=== PATIENT | female | born 1960 | race Caucasian/White ===

== ENCOUNTER 2018-01-06 12:57 | Day surgery (SDC) | payer BC ==
[2018-01-06] MEDS ORDERED: Dexamethasone 20 MG/5 ML VIAL ONE (15:03)
[2018-01-06] MEDS ORDERED: Lidocaine 1% PF 5 ML VIAL ONE (15:03)
[2018-01-06] MEDS ORDERED: Ondansetron HCl/PF 4 MG/2 ML Vial ONE (15:03)
[2018-01-06] MEDS ORDERED: PROPOFOL 200 MG/20 ML VIAL ONE (15:03)
[2018-01-06] MEDS ORDERED: ePHEDrine/0.9% NaCl/PF SYRINGE 50 mg/10 ml ONE (15:03)
[2018-01-06] MEDS ORDERED: Midazolam HCl 2 mg/2 ml Vial ONE (16:07)
[2018-01-06] MEDS ORDERED: Bupivacaine HCl 0.5%/Epinephrine 1:200,000/PF 30 ml Vial IJ SCH (16:30)
[2018-01-06] MEDS ORDERED: Bacitracin Zinc Ointment 30 gm TUBE ONE (18:08)
[2018-01-06] MEDS ORDERED: Bupivacaine PF 0.5% 30 ML VIAL ONE (18:08)
[2018-01-06] MEDS ORDERED: Sodium Chloride 0.9% 0 ML ONE (18:08)
[2018-01-06] MEDS ORDERED: Fentanyl 100 MCG/2 ML VIAL ONE (18:53)
[2018-01-06] MEDS ORDERED: Promethazine HCl 25 MG/ML VIAL ONE (21:18)
[2018-01-06] MEDS ORDERED: Ketorolac Tromethamine 30 MG/ML VIAL ONE (21:37)
--- NOTE | 2018-01-06 22:47 | RAD ---
INTRAOPERATIVE FLUOROSCOPY 01/06/18 HISTORY: ORIF left fifth digit. COMPARISON: None. EXPOSURE: 48.8 seconds, 0.90 mGy. FINDINGS: Fluoroscopic images demonstrate placement of three metallic pins through the distal phalanx of the th umb. IMPRESSION: Fluoroscopy as above. POS: RAD[facility]
--- NOTE | 2018-01-07 14:19 | OP ---
DATE OF PROCEDURE: 01/06/2018 PREOPERATIVE DIAGNOSES: Right type 4 Kimberly and Uniform Cap Operator flexor digitorum profundus avulsion of the ten don with findings of distal phalanx fracture was three-part intra-articular. PROCEDURES PERFORMED: 1. Open reduction and internal fixation of distal phalanx fracture. 2. [place] common flexor digitorum profundus from the site of retraction to the A2 pully in. 3. Open reduction and internal fixation with reconstruction of the flexor tendon back to bone, zone 1. COMPLICATIONS: None. FINDINGS: Patient had marked amount of hematoma with had return of adequate one second capilla ry refill once the wound was closed and the tourniquet was deflated. INDICATIONS: Patient is now almost 10 days after injury described above. Uncertain whether the tend on was in the palm or not, so in order to get to perform the procedure within 2-week window, procedur e had to be scheduled today as a semi-urgent case. Anesthesia was block, augmented by general LMA eladio hnique. DESCRIPTION OF PROCEDURE: After successful general endotracheal anesthesia, limb was prepped and catrina ped. C-arm brought into the field. We confirmed where the bone block was and also the fracture. We inflated the tourniquet, examined them, opened the distal phalanx with a curvilinear incision stayin g off the center of the palm itself, protected the neurovascular bundle and carried through skin and subcutaneous tissue, we saw that the patient had nearly an 80% tendon, 85% tendon avulsion loss, the fragment was still attached over 85% to the flexor tendon, it was approximately 7 to 8 mm long and 4 mm wide. The patient also had a fracture that was transverse extending back towards the joint line f rom this, so we needed closed reduction and pinned it with intraosseous K-wire 0.45. Then, we saw th at this reduction was adequate both clinically enough to withstand reconstruction, so we then irrigat ed the tendon sheath area and then made a 5 loop on each side Rubén suture and brought it out throu gh the edge of the bone so the bone was flattened. We brought in back into the fracture defect. We then released the needle from the 4-0 Prolene, isolated through the A3 and A4 vikram until that was i n its position. We then used a Fam needle through bone, brought it out distally at the base of the nail with a 4 mm gap between them. We had difficulty to change appropriate rotation and then we cou ld do over 80% reduction, so we held the construct of the small adaptic button and suture in place, f lexed the finger of 45 degrees at the DIP, and 90 degrees of PIP joint, and then reduced the fragment nearly anatomic and held there with 2K wires each angled off the midline opposite of to miss t he intraosseous central wire. Then, we saw this was nearly a 100% reduced with less than 0.5 mm disp lacement, we cut these wires and finished tying the suture button to maintain the rotation and the fl exor tendon in the defect. Suture button had an excellent tension. We cut the wires with 1 to 1.5 mm protruding, so it would no t slide through the bone before healing took place, released the tourniquet and hemostasis, vikram wa s intact. This is the A3 and A4. Closed the incision with 5-0 nylon in an interrupted pattern, patient had the same purpuric look with 1 second refill that the finger had before because of large hematoma distally, cut the wire at the f ingertip underneath the skin and then placed in the bulky dressing with a splint blocking all flexion of the finger with MP joint, now at 70 degrees of flexion, PIP at 45 degrees of flexion and the DIP at 30 degrees of flexion. It was then increased flexion angle of all joints compared to the other di gits. C-arm confirmed this, C-arm was released and we left the operating room without evidence of an esthetic or operative complications.
== END 2018-01-06 22:10 | disposition home or self-care (01) ==
LOC: SDC 12:57
PROVIDERS: ATTEND Orthopaedic Surgery Hand Surgery
PROC: 0PST04Z Reposition Right Finger Phalanx with Internal Fixation Device, Open Approach (ICD-10-PCS; principal; 2018-01-06)
PROC: 0LM70ZZ Reattachment of Right Hand Tendon, Open Approach (ICD-10-PCS; principal; 2018-01-06)
DX: S62.636A Displaced fracture of distal phalanx of right little finger, initial encounter for closed fracture (principal); S66.196A Other injury of flexor muscle, fascia and tendon of right little finger at wrist and hand level, initial encounter; Z88.5 Allergy status to narcotic agent; X50.0XXA Overexertion from strenuous movement or load, initial encounter
CPT/HCPCS: 76001; 96374; A4216; J0670; J1100; J1885; J2001; J2250; J2405; J2550; J2704; J3010; J3490; S0020

== ENCOUNTER 2019-04-26 11:43 | Outpatient (CLI) | payer BC ==
--- NOTE | 2019-04-26 13:08 | MMO ---
Bilateral MAMMO Bilat Screen [facility]. CLINICAL HISTORY: Patient is 58 years old and is seen for screening. The patient has the following family history of breast cancer: mother, at age 30, malignant (generic) and maternal aunt, malignant (generic). The patient has no personal history of cancer. VIEWS: The views performed were: bilateral craniocaudal with tomosynthesis and bilateral mediolateral oblique with tomosynthesis. FILMS COMPARED: The present examination has been compared to prior imaging studies performed at [facility] on 09/30/2016, and at [facility] on 11/04/2012. This study has been interpreted with the assistance of computer-aided detection. MAMMOGRAM FINDINGS: There are scattered fibroglandular densities. There are stable benign appearing calcifications seen in both breasts. There are no suspicious masses, suspicious calcifications, or new areas of architectural distortion. IMPRESSION: THERE IS NO MAMMOGRAPHIC EVIDENCE OF MALIGNANCY. A ROUTINE FOLLOW-UP MAMMOGRAM IN 1 YEAR IS RECOMMENDED. THE RESULTS OF THIS EXAM WERE SENT TO THE PATIENT. ACR BI-RADS Category 2 - Benign finding MAMMOGRAPHY NOTE: 1. A negative mammogram report should not delay a biopsy if a dominant of clinically suspicious mass is present. 2. Approximately 10% to 15% of breast cancers are not detected by mammography. 3. Adenosis and dense breasts may obscure an underlying neoplasm. Reported by: SETH LAWRENCE MD Electonically Signed: [id number]
== END 2019-04-26 11:44 | disposition home or self-care (01) ==
LOC: BICMAMMO 11:43
PROVIDERS: ATTEND Family Medicine
DX: Z12.31 Encounter for screening mammogram for malignant neoplasm of breast (principal); Z80.3 Family history of malignant neoplasm of breast
CPT/HCPCS: 77063; 77067

== ENCOUNTER 2020-05-02 11:53 | Outpatient (CLI) | payer BC, OTHER ==
--- NOTE | 2020-05-02 12:32 | MMO ---
Bilateral MAMMO Bilat Screen [facility]. CLINICAL HISTORY: Patient is 59 years old and is seen for screening. The patient has the following family history of breast cancer: mother, at age 30, malignant (generic) and maternal aunt, malignant (generic). The patient has no personal history of cancer. VIEWS: The views performed were: bilateral craniocaudal with tomosynthesis and bilateral mediolateral oblique with tomosynthesis. FILMS COMPARED: The present examination has been compared to prior imaging studies performed at [facility] on 09/30/2016 and 04/26/2019, and at [facility] on 11/04/2012. This study has been interpreted with the assistance of computer-aided detection. MAMMOGRAM FINDINGS: There are scattered fibroglandular densities. There are no suspicious masses, suspicious calcifications, or new areas of architectural distortion. IMPRESSION: THERE IS NO MAMMOGRAPHIC EVIDENCE OF MALIGNANCY. A ROUTINE FOLLOW-UP MAMMOGRAM IN 1 YEAR IS RECOMMENDED. THE RESULTS OF THIS EXAM WERE SENT TO THE PATIENT. ACR BI-RADS Category 1 - Negative MAMMOGRAPHY NOTE: 1. A negative mammogram report should not delay a biopsy if a dominant of clinically suspicious mass is present. 2. Approximately 10% to 15% of breast cancers are not detected by mammography. 3. Adenosis and dense breasts may obscure an underlying neoplasm. Reported by: SHAQ LAYNE MD Electonically Signed: [id number]
== END 2020-05-02 11:54 | disposition home or self-care (01) ==
LOC: BICMAMMO 11:53
PROVIDERS: ATTEND Family Medicine
DX: Z12.31 Encounter for screening mammogram for malignant neoplasm of breast (principal); Z80.3 Family history of malignant neoplasm of breast
CPT/HCPCS: 77063; 77067